=== PATIENT | male | born 1995 | race Caucasian/White ===

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

== ENCOUNTER 2019-06-04 17:32 | Emergency (ER) | payer OTHER, BC ==
[2019-06-04 18:26] VITALS: BP 140/82
--- NOTE | 2019-06-04 18:31 | UC ---
Hand/Wrist HPI - HPI Summary HPI Summary: 23yo male presenting with right wrist pain x2 weeks after falling on ice. States "it swelled up real bad at first." States he "just dealt with it." States swelling improved but pain has not. States constant throbbing worse with any wrist movement. States it radiates up the fore arm and down into fingers. Denies numbness and tingling. Denies decreased ROM and strength. Taking tylenol for pain relief. - History Of Current Complaint Chief Complaint: UCUpperExtremity Stated Complaint: RIGHT HAND INJURY Hx Obtained From: Patient Pain Intensity: 6 Pain Scale Used: 0-10 Numeric - Allergies/Home Medications Allergies/Adverse Reactions: Allergies Allergy/AdvReac Type Severity Reaction Status Date / Time No Known Allergies Allergy Verified 06/04/19 18:26 Home Medications: Home Medications Acetaminophen [Extra Strength Acetaminop] 1,000 mg PO ONCE PRN 05/15/16 [ History Confirmed 06/04/19] PMH/Surg Hx/FS Hx/Imm Hx - Surgical History Surgical History: None - Family History Known Family History: Positive: Other - father-hyperthyroid - Social History Alcohol Use: Rare Substance Use Type: None Smoking Status (MU): Never Smoked Tobacco - Immunization History Vaccination Up to Date: Yes Review of Systems All Other Systems Reviewed And Are Negative: Yes Constitutional: Positive: Negative Skin: Positive: Negative Respiratory: Positive: Negative Cardiovascular: Positive: Negative Musculoskeletal: Positive: Arthralgia - right wrist pain. Negative: Decreased ROM, Edema Neurological/Mental Status: Positive: Negative. Negative: Paresthesia, Numbness Physical Exam - Summary Physical Exam Summary: Vital Signs Reviewed: Yes A+Ox3, no distress Eyes: Conjunctiva Clear ENT: Hearing grossly normal neck: supple Respiratory: Positive: No respiratory distress, No accessory muscle use Cardiovascular: skin color reflect adequate perfusion Musculoskeletal Exam: +minimal TTP of ulnar aspect of right wrist, no edema, no erythema or ecchymosis, ROM intact, strength intact, sensation grossly intact Neurological: Positive: Alert, ambulatory without difficulty Psychological: Positive: age appropriate behavior Skin: Positive: no rash, no ecchymosis Vital Signs: Initial Vital Signs Temp 98.8 F 06/04/19 18:23 Pulse 84 06/04/19 18:23 Resp 16 06/04/19 18:23 BP 140/82 06/04/19 18:23 Pulse Ox 100 06/04/19 18:23 Hand/Wrist Course/Dx - Course Course Of Treatment: Discussed initial negative read of radiograph with patient and informed him that he would be notified with any abnormalities found on final report in the morning. Instructed to continue with symptomatic treatment and follow up with orthopedics. PAtient voiced understanding and agreed with treatment plan. - Differential Dx/Diagnosis Differential Diagnosis/HQI/PQRI: Contusion, Fracture, Sprain, Strain, Tendonitis Provider Diagnosis: Acute pain of right wrist Discharge ED - Sign-Out/Discharge Documenting (check all that apply): Patient Departure All imaging exams completed and their final reports reviewed: No - Discharge Plan Condition: Stable Disposition: HOME Patient Education Materials: Wrist Sprain (ED) Referrals: Shreyas Ruiz MD [Medical Doctor] - Additional Instructions: As discussed, your radiograph was reviewed by the provider that treated you tonight. It will be read by a radiologist tomorrow morning. If there is a finding other than that discussed with you today, you will receive a call from a care provider. Rest, ice, and elevate the wrist to reduce pain and swelling. Take ibuprofen as directed and use the wrist splint for pain relief. Follow up with the orthopedic referral listed below for further evaluation. - Billing Disposition and Condition Condition: STABLE Disposition: Home - Attestation Statements Provider Attestation: This patient was not seen by me. I was available for consult. Chart reviewed. MARLENA
== END 2019-06-04 19:03 | disposition home or self-care (01) ==
LOC: UCCORT 17:32
DX: M25.531 Pain in right wrist (principal)
CPT/HCPCS: 99202; G0463